=== PATIENT | male | born 1975 | race Caucasian/White ===

== ENCOUNTER 2019-03-19 18:00 | Emergency (ER) | payer BC ==
[2019-03-19] MEDS ORDERED: Adenosine 6 MG/2 ML SDV IVPUSH ONE ×3 (18:01→18:23)
[2019-03-19] MEDS ORDERED: fentaNYL 100 MCG/2 ML SDV ONE ×2 (18:02→18:55)
[2019-03-19] MEDS ORDERED: Adenosine 6 MG/2 ML SDV ONE ×3 (18:02)
[2019-03-19] MEDS ORDERED: Midazolam 1 MG/ML 2 ML SDV ONE ×2 (18:02→18:55)
[2019-03-19] MEDS ORDERED: Sodium Chloride 0.9% 1,000 ML IV ONE ×2 (18:10→19:14)
--- NOTE | 2019-03-19 18:30 | EDM.PDOC ---
ED HPI GENERAL MEDICAL PROBLEM - General Chief Complaint: Chest Pain Stated Complaint: tachycardia Time Seen by Provider: 03/19/19 18:15 Source of Information: Reports: Patient History Limitations: Reports: No Limitations - History of Present Illness INITIAL COMMENTS - FREE TEXT/NARRATIVE: 3Hr hx irregular heartbeat. No chest pain. No Sob/dizziness/diaphoresis. No other accompanying complaints. Admits to brief intermittent episodes of rapid heart rate in past. No formal diagnosis of heart disease. Had an energy drink today and one yesterday. Also drank half a 20ounce Coke. Non-smoker. Denies street drugs. Later disclosed that he drank a case of beer over the weekend. Says that he does not usually drink much during the week, maybe goes through a 6 pack at most. Family history of heart disease but patient cannot be specific as to details. - Related Data Allergies Allergy/AdvReac Type Severity Reaction Status Date / Time No Known Allergies Allergy Verified 03/19/19 18:22 Home Meds: Home Meds . [No Known Home Meds] 03/19/19 [History] Past Medical History - Past Health History Medical/Surgical History: Denies Medical/Surgical History Social & Family History - Tobacco Use Smoking Status *Q: Never Smoker - Caffeine Use Caffeine Use: Reports: Energy Drinks, Soda - Alcohol Use Alcohol Use History: Yes Alcohol Use in Last Twelve Months: Yes Alcohol Use Comment: Drinks up to one 6 pack during week days. Sometimes drinks more on weekends. Admits to drinking " a lot" this past weekend, estimates that he drank a case of beer in total. - Recreational Drug Use Recreational Drug Use: No Drug Use in Last 12 Months: No ED ROS GENERAL - Review of Systems Review Of Systems: ROS reveals no pertinent complaints other than HPI. ED EXAM, GENERAL - Physical Exam Exam: See Below Exam Limited By: No Limitations General Appearance: Alert, WD/WN, No Apparent Distress Eye Exam: Bilateral Eye: EOMI, PERRL Ears: Normal External Exam Nose: No: Nasal Deformity, Nasal Swelling, Nasal Drainage Throat/Mouth: Normal Lips, Normal Voice, No Airway Compromise Head: Atraumatic, Normocephalic Neck: Normal Inspection, Supple, Non-Tender, Full Range of Motion Respiratory/Chest: No Respiratory Distress, No Accessory Muscle Use, Chest Non- Tender, Wheezing (single wheeze noted left lung). No: Crackles, Rales, Rhonchi , Accessory Muscle Use, Retractions Cardiovascular: No Edema, No JVD, Tachycardia GI/Abdominal: Soft, Non-Tender, No Distention (Male) Exam: Deferred Rectal (Males) Exam: Deferred Back Exam: No: CVA Tenderness (L), CVA Tenderness (R), Muscle Spasm, Paraspinal Tenderness, Vertebral Tenderness Extremities: Non-Tender, No Pedal Edema, Normal Capillary Refill Neurological: Alert, Oriented, Normal Cognition, No Motor/Sensory Deficits Psychiatric: Normal Affect, Normal Mood Skin Exam: Warm, Dry, Intact, Normal Color ED GENERAL MEDICAL PROCEDURES - Additional/Other Procedure(s) Other (Free Text) Procedure(s): Synchronized Cardioversion. Premedicated with 3mg Versed and 100mcg Fentanyl. Single shock performed. 100J. Sinus rhythm noted after shock. EKG INTERPRETATION EKG Date: 03/19/19 Time: 18:02 Rhythm: Other (tachycardia) Rate (Beats/Min): 196 [place]: Normal P-Wave: Absent QRS: Wide ST-T: Other (difficult to assess due to tachycardic rhythm) Comparison: NA - No Prior EKG Course - Orders/Labs/Meds Orders: Active Orders 24 hr Category Date Time Status EKG Documentation Completion [RC] ASDIRECTED Care 03/19/19 18:03 Active Chest 1V Frontal [CR] Stat Exams 03/19/19 18:26 Ordered ETOH [ETHANOL BLOOD MEDICAL] [CHEM] Stat Lab 03/19/19 20:56 Ordered Labs: Laboratory Tests 03/19/19 03/19/19 03/19/19 Range/Units 18:18 18:18 18:18 WBC 8.5 (4.0-10.2) K/uL RBC 4.32 L (4.33-5.41) M/uL Hgb 14.0 (13.1-16.8) g/dL Hct 42.6 (39.0-49.0) % MCV 98.6 H (84.0-98.0) fL MCH 32.4 (28.2-33.3) pg MCHC 32.9 (31.7-36.0) g/dL RDW 12.2 (11.2-14.1) % Plt Count 332 (150-350) K/uL Neut % (Auto) 57.8 (45.0-80.0) % Lymph % (Auto) 27.7 (10.0-50.0) % [place] % (Auto) 10.5 (2.0-14.0) % Eos % (Auto) 3.4 (0.0-5.0) % Baso % (Auto) 0.6 (0.0-2.0) % Neut # (Auto) 4.88 (1.40-7.00) K/uL Lymph # (Auto) 2.34 (0.50-3.50) K/uL [place] # (Auto) 0.89 (0.00-1.00) K/uL Eos # (Auto) 0.29 (0.00-0.50) K/uL Baso # (Auto) 0.05 (0.00-0.20) K/uL PT 9.9 (9.5-12.0) SEC INR 0.9 APTT 29.9 (21.0-31.3) SEC D-Dimer, Quantitative < 100 (0-400) ng/mL Sodium (136-145) mmol/L Potassium (3.5-5.1) mmol/L Chloride (98-107) mmol/L Carbon Dioxide (21.0-32.0) mmol/L BUN (7-18) mg/dL Creatinine (0.51-1.17) mg/dL Est Cr Clr Drug Dosing mL/min Estimated GFR (MDRD) mL/min Glucose (74-106) mg/dL Lactic Acid (0.4-2.0) mmol/L Calcium (8.5-10.1) mg/dL Magnesium (1.8-2.4) mg/dL Total Bilirubin (0.2-1.0) mg/dL AST (15-37) U/L ALT (12-78) U/L Alkaline Phosphatase (46-116) IU/L Creatine Kinase (26-308) U/L Creatine Kinase Index (0.0-2.5) % CK-MB (CK-2) (0.00-3.60) ng/mL Troponin I (0.000-0.056) ng/mL NT-Pro-B Natriuret Pep (0-125) pg/mL Total Protein (6.4-8.2) g/dL Albumin (3.4-5.0) g/dL 03/19/19 03/19/19 Range/Units 18:18 18:18 WBC (4.0-10.2) K/uL RBC (4.33-5.41) M/uL Hgb (13.1-16.8) g/dL Hct (39.0-49.0) % MCV (84.0-98.0) fL MCH (28.2-33.3) pg MCHC (31.7-36.0) g/dL RDW (11.2-14.1) % Plt Count (150-350) K/uL Neut % (Auto) (45.0-80.0) % Lymph % (Auto) (10.0-50.0) % [place] % (Auto) (2.0-14.0) % Eos % (Auto) (0.0-5.0) % Baso % (Auto) (0.0-2.0) % Neut # (Auto) (1.40-7.00) K/uL Lymph # (Auto) (0.50-3.50) K/uL [place] # (Auto) (0.00-1.00) K/uL Eos # (Auto) (0.00-0.50) K/uL Baso # (Auto) (0.00-0.20) K/uL PT (9.5-12.0) SEC INR APTT (21.0-31.3) SEC D-Dimer, Quantitative (0-400) ng/mL Sodium 140 (136-145) mmol/L Potassium 3.7 (3.5-5.1) mmol/L Chloride 102 (98-107) mmol/L Carbon Dioxide 25.7 (21.0-32.0) mmol/L BUN 13 (7-18) mg/dL Creatinine 0.95 (0.51-1.17) mg/dL Est Cr Clr Drug Dosing 107.89 mL/min Estimated GFR (MDRD) > 60 mL/min Glucose 161 H (74-106) mg/dL Lactic Acid 1.4 (0.4-2.0) mmol/L Calcium 9.3 (8.5-10.1) mg/dL Magnesium 2.3 (1.8-2.4) mg/dL Total Bilirubin 0.4 (0.2-1.0) mg/dL AST 24 (15-37) U/L ALT 32 (12-78) U/L Alkaline Phosphatase 78 (46-116) IU/L Creatine Kinase 155 (26-308) U/L Creatine Kinase Index 1.2 (0.0-2.5) % CK-MB (CK-2) 1.80 (0.00-3.60) ng/mL Troponin I 0.000 (0.000-0.056) ng/mL NT-Pro-B Natriuret Pep 129 H (0-125) pg/mL Total Protein 8.4 H (6.4-8.2) g/dL Albumin 4.1 (3.4-5.0) g/dL Meds: Medications Discontinued Medications Generic Name Dose Route Start Last Admin Trade Name Freq PRN Reason Stop Dose Admin Adenosine 6 mg 03/19/19 18:01 03/19/19 18:00 Adenocard IVPUSH 03/19/19 18:02 6 mg NOW ONE Administration Adenosine 12 mg 03/19/19 18:01 03/19/19 18:32 Adenocard IVPUSH 03/19/19 18:02 Not Given NOW ONE Adenosine Confirm 03/19/19 18:02 03/19/19 18:26 Adenocard Administered 03/19/19 18:03 Not Given Dose 12 mg .ROUTE .STK-MED ONE Adenosine 12 mg 03/19/19 18:23 03/19/19 18:33 Adenocard IVPUSH 03/19/19 18:24 Not Given NOW ONE Diltiazem HCl 20 mg 03/19/19 18:32 03/19/19 18:37 Diltiazem IVPUSH 03/19/19 18:33 20 mg ONETIME ONE Administration Diltiazem HCl Confirm 03/19/19 18:39 03/19/19 18:58 Diltiazem Administered 03/19/19 18:40 25 mg Dose Administration 25 mg .ROUTE .STK-MED ONE Diltiazem HCl Confirm 03/19/19 18:42 03/19/19 18:46 Diltiazem Administered 03/19/19 18:43 125 mg Dose Administration 125 mg .ROUTE .STK-MED ONE Diltiazem HCl Confirm 03/19/19 18:52 03/19/19 18:58 Diltiazem Administered 03/19/19 18:53 Not Given Dose 25 mg .ROUTE .STK-MED ONE Fentanyl Confirm 03/19/19 18:55 03/19/19 19:16 Sublimaze Administered 03/19/19 18:56 Not Given Dose 100 mcg .ROUTE .STK-MED ONE Heparin Sodium (Porcine) Confirm 03/19/19 19:11 03/19/19 19:24 Heparin Sodium Administered 03/19/19 19:12 4,000 units Dose Administration 5,000 units .ROUTE .STK-MED ONE Midazolam HCl Confirm 03/19/19 18:55 03/19/19 19:16 Versed 1 Mg/Ml Administered 03/19/19 18:56 Not Given Dose 4 mg .ROUTE .STK-MED ONE - Radiology Interpretation Free Text/Narrative:: Chest xray did not show acute focal changes. - Re-Assessments/Exams Free Text/Narrative Re-Assessment/Exam: IV access and labs drawn. Tachycardia with average rate of 190 noted on monitor. Vital signs otherwise stable. Patient given a series of Adenosine injections, 6mg followed by 12mg then an additional 12mg. No effect at all was observed on youth nutritional monitor after any of these interventions. Simultaneous consultation obtained from [facility] as interventions given. Call then placed to [facility] and patient discussed with Cardiology, . Plan then was to try Cardizem if patient remained stable, and then go to Cardioversion if this failed or patient destabilized. 20mg Cardizem given and no change observed. An additional bolus of Cardizem followed and Cardizem drip initiated. Again, no observed change overall in patient's heart rate. Labs overall unremarkable. Blood sugar 161. Troponin negative. Mild increased proBNP. It was decided to perform synchronized cardioversion. Heparin bolus ordered. Patient premedicated with Fentanyl and Versed. Converted to sinus rhythm with single 100J shock. Vital signs remained stable. [facility] contacted with update. accepted the patient for transfer to their facility. Patient remained in sinus rhythm throughout rest of stay. Transferred to [facility] by EMS. Second EKG at 19:15 showed sinus rhythm with non-specific intraventricular block. Unusual Twave morphology in V1-V3. Departure - Departure Time of Disposition: 19:21 Disposition: DC/Tfer to Acute Hospital 02 Condition: Good Clinical Impression: Tachycardia - Discharge Information *PRESCRIPTION DRUG MONITORING PROGRAM REVIEWED*: Not Applicable *COPY OF PRESCRIPTION DRUG MONITORING REPORT IN PATIENT INA: Not Applicable Referrals: PCP,None [Primary Care Provider] - Forms: ED Department Discharge - My Orders Last 24 Hours: My Active Orders 03/19/19 18:03 EKG Documentation Completion [RC] ASDIRECTED 03/19/19 18:26 Chest 1V Frontal [CR] Stat 03/19/19 20:56 ETOH [ETHANOL BLOOD MEDICAL] [CHEM] Stat - Assessment/Plan Last 24 Hours: My Active Orders 03/19/19 18:03 EKG Documentation Completion [RC] ASDIRECTED 03/19/19 18:26 Chest 1V Frontal [CR] Stat 03/19/19 20:56 ETOH [ETHANOL BLOOD MEDICAL] [CHEM] Stat
[2019-03-19] MEDS ORDERED: Diltiazem 25 MG/5 ML SDV IVPUSH ONE (18:32)
[2019-03-19] MEDS ORDERED: Diltiazem 25 MG/5 ML SDV ONE ×2 (18:39→18:52)
[2019-03-19] MEDS ORDERED: Diltiazem 125 MG/25 ML SDV ONE (18:42)
[2019-03-19 18:57] LABS: CHLORIDE,CL 102 mmol/L (98-107); SODIUM,NA 140 mmol/L (136-145)
[2019-03-19] MEDS ORDERED: Heparin Sodium 5,000 Units/ML Vial ONE (19:11)
== END 2019-03-19 19:40 ==
LOC: LL.ED 18:00
DX: R00.0 Tachycardia, unspecified (principal)
CPT/HCPCS: 36415; 71045; 80053; 82550; 82553; 83605; 83735; 83880; 84484; 85025; 85379; 85610; 85730; 92960; 93005; 96361; 96365; 96375; 96376; 99284; 99285-25; G0480; J0153; J1644; J2250; J3010; J3490; J7030

== ENCOUNTER 2019-11-24 16:43 | Emergency (ER) | payer BC ==
[2019-11-24 17:58] LABS: CHLORIDE,CL 104 mmol/L (98-107); SODIUM,NA 137 mmol/L (136-145)
--- NOTE | 2019-11-24 18:02 | EDM.PDOC ---
ED HPI GENERAL MEDICAL PROBLEM - General Chief Complaint: General Stated Complaint: heart racing Time Seen by Provider: 11/24/19 17:20 Source of Information: Reports: Patient History Limitations: Reports: No Limitations - History of Present Illness INITIAL COMMENTS - FREE TEXT/NARRATIVE: Patient comes to ER to be checked out as he felt his heart was faster than usual. Rate was around 100-110 earlier. Admits to some anxiety about situation as last time he had to come in he ended up being cardioverted. 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 Otherwise feels fine. Was outside working in heat yesterday most of day. Today was sitting outside in heat when he noticed this. - Related Data Allergies Allergy/AdvReac Type Severity Reaction Status Date / Time No Known Allergies Allergy Verified 03/19/19 18:22 Home Meds: Home Meds Metoprolol Succinate [Toprol XL] 25 mg PO DAILY 11/24/19 [History] Past Medical History - Past Health History Medical/Surgical History: Denies Medical/Surgical History Cardiovascular History: Reports: Other (See Below) (Channing Schumacher) Social & Family History - Caffeine Use Caffeine Use: Reports: Energy Drinks, Soda ED ROS GENERAL - Review of Systems Review Of Systems: See Below Constitutional: Reports: No Symptoms HEENT: Reports: No Symptoms Respiratory: Reports: No Symptoms. Denies: Shortness of Breath Cardiovascular: Reports: Palpitations (felt "fluttery" in chest for awhile. Now improved. ). Denies: Chest Pain, Dyspnea on Exertion, Lightheadedness, Syncope GI/Abdominal: Reports: No Symptoms : Reports: No Symptoms Musculoskeletal: Reports: No Symptoms Skin: Reports: No Symptoms Neurological: Reports: No Symptoms Psychiatric: Reports: No Symptoms ED EXAM, GENERAL - Physical Exam Exam: See Below Exam Limited By: No Limitations General Appearance: Alert, WD/WN, No Apparent Distress Eye Exam: Bilateral Eye: EOMI, PERRL Ears: Normal External Exam, Hearing Grossly Normal Nose: No: Nasal Deformity, Nasal Swelling, Nasal Drainage Throat/Mouth: Normal Lips, Normal Voice, No Airway Compromise Head: Atraumatic, Normocephalic Neck: Normal Inspection, Supple, Non-Tender, Full Range of Motion Respiratory/Chest: No Respiratory Distress, Lungs Clear, Normal Breath Sounds, No Accessory Muscle Use Cardiovascular: Normal Peripheral Pulses, Regular Rate, Rhythm, No Edema, No Murmur GI/Abdominal: Soft, Non-Tender, No Distention Back Exam: Normal Inspection Extremities: Normal Inspection, Normal Range of Motion, Normal Capillary Refill Neurological: Alert, Oriented, CN II-XII Intact, Normal Cognition, Normal Gait, No Motor/Sensory Deficits Psychiatric: Normal Affect, Normal Mood Skin Exam: Warm, Dry, Intact, Normal Color EKG INTERPRETATION EKG Date: 11/24/19 Time: 17:14 Rhythm: NSR Rate (Beats/Min): 84 [place]: Normal P-Wave: Present QRS: Other (RSR' pattern V1) ST-T: Normal QT: Normal Comparison: Change From Previous EKG (Previous EKG/patient tachycardic) Course - Vital Signs Last Recorded V/S: Last Vital Signs Temp 37.1 C 11/24/19 16:43 Pulse 81 11/24/19 17:50 Resp 19 11/24/19 17:50 BP 124/76 11/24/19 17:50 Pulse Ox 97 11/24/19 17:50 - Orders/Labs/Meds Labs: Laboratory Tests 11/24/19 11/24/19 Range/Units 17:26 17:26 WBC 6.5 (4.0-10.2) K/uL RBC 3.99 L (4.33-5.41) M/uL Hgb 13.0 L (13.1-16.8) g/dL Hct 40.1 (39.0-49.0) % MCV 100.5 H (84.0-98.0) fL MCH 32.6 (28.2-33.3) pg MCHC 32.4 (31.7-36.0) g/dL RDW 12.2 (11.2-14.1) % Plt Count 321 (150-350) K/uL Neut % (Auto) 67.9 (45.0-80.0) % Lymph % (Auto) 17.4 (10.0-50.0) % [place] % (Auto) 9.6 (2.0-14.0) % Eos % (Auto) 4.5 (0.0-5.0) % Baso % (Auto) 0.6 (0.0-2.0) % Neut # (Auto) 4.40 (1.40-7.00) K/uL Lymph # (Auto) 1.13 (0.50-3.50) K/uL [place] # (Auto) 0.62 (0.00-1.00) K/uL Eos # (Auto) 0.29 (0.00-0.50) K/uL Baso # (Auto) 0.04 (0.00-0.20) K/uL Sodium 137 (136-145) mmol/L Potassium 4.0 (3.5-5.1) mmol/L Chloride 104 (98-107) mmol/L Carbon Dioxide 26.8 (21.0-32.0) mmol/L BUN 12 (7-18) mg/dL Creatinine 0.85 (0.51-1.17) mg/dL Est Cr Clr Drug Dosing 119.35 mL/min Estimated GFR (MDRD) > 60 mL/min Glucose 136 H (74-106) mg/dL Calcium 8.7 (8.5-10.1) mg/dL Magnesium 2.1 (1.8-2.4) mg/dL Total Bilirubin 0.3 (0.2-1.0) mg/dL AST 27 (15-37) U/L ALT 29 (12-78) U/L Alkaline Phosphatase 95 (46-116) IU/L Total Protein 7.7 (6.4-8.2) g/dL Albumin 3.6 (3.4-5.0) g/dL - Re-Assessments/Exams Free Text/Narrative Re-Assessment/Exam: Unremarkable exam. Patient reported feeling well. EKG showed normal rate/vital signs stable. CBC/Chem/Mg performed and overall unremarkable. No further intervention indicated at this time. May have been heat related/mild dehydration. Recommended to patient to observe for further changes, rest in AC environment today and tomorrow/stay hydrated. Follow up as needed if problems return. Patient agreeable with plan. Departure - Departure Time of Disposition: 18:00 Disposition: Home, Self-Care 01 Condition: Good Clinical Impression: Heat exposure Qualifiers: Encounter type: initial encounter Qualified Code(s): T67.9XXA - Effect of heat and light, unspecified, initial encounter - Discharge Information *PRESCRIPTION DRUG MONITORING PROGRAM REVIEWED*: Not Applicable *COPY OF PRESCRIPTION DRUG MONITORING REPORT IN PATIENT INA: Not Applicable Referrals: Sunny Muir PA-C [Primary Care Provider] - Forms: ED Department Discharge Additional Instructions: Take it easy today and tomorrow. Stay hydrated! Follow up as needed if you have additional problems. Sepsis Event Note (ED) - Evaluation Sepsis Screening Result: No Definite Risk - Focused Exam Vital Signs: Vital Signs Temp Pulse Resp BP Pulse Ox 11/24/19 17:50 81 19 124/76 97 11/24/19 17:35 80 18 121/75 97 11/24/19 17:20 84 20 127/74 96 11/24/19 17:05 83 20 141/78 H 98 11/24/19 16:50 80 16 129/76 99 11/24/19 16:45 81 16 142/79 H 100 11/24/19 16:43 37.1 C 79 18 142/79 H 100
== END 2019-11-24 18:15 | disposition home or self-care (01) ==
LOC: LL.ED 16:43
DX: T67.9XXA Effect of heat and light, unspecified, initial encounter (principal); R00.0 Tachycardia, unspecified; Z79.899 Other long term (current) drug therapy
CPT/HCPCS: 36415; 80053; 83735; 85025; 99285-25

== ENCOUNTER 2020-06-28 08:42 | Emergency (ER) | payer BC ==
[2020-06-28] MEDS ORDERED: Sodium Chloride 0.9% 10 ML Syringe FLUSH PRN (09:04)
[2020-06-28 09:48] LABS: CHLORIDE,CL 103 mmol/L (98-107); SODIUM,NA 137 mmol/L (136-145)
--- NOTE | 2020-06-28 09:55 | EDM.PDOC ---
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 Has not had ablation yet No chest pain Some SOB Did do Valsalva today and converted prior to arrival Onset: Today, Sudden Location: Reports: Chest - Related Data Allergies Allergy/AdvReac Type Severity Reaction Status Date / Time No Known Allergies Allergy Verified 06/28/20 08:52 Home Meds: Home Meds Metoprolol Succinate [Toprol XL] 25 mg PO DAILY 11/24/19 [History] Multivitamin 1 tab PO DAILY 06/28/20 [History] Past Medical History - Past Health History Medical/Surgical History: Denies Medical/Surgical History Cardiovascular History: Reports: Other (See Below) Other Cardiovascular History: Hx of WPW Dx. - Infectious Disease History Infectious Disease History: Reports: Chicken Pox Social & Family History - Tobacco Use Tobacco Use Status *Q: Never Tobacco User Second Hand Smoke Exposure: No - Caffeine Use Caffeine Use: Reports: None - Recreational Drug Use Recreational Drug Use: No ED ROS GENERAL - Review of Systems Review Of Systems: See Below HEENT: Reports: No Symptoms Respiratory: Reports: No Symptoms Cardiovascular: Reports: Palpitations GI/Abdominal: Reports: No Symptoms Musculoskeletal: Reports: No Symptoms ED EXAM, GENERAL - Physical Exam Exam: See Below Exam Limited By: No Limitations General Appearance: Alert, WD/WN, No Apparent Distress Neck: Supple Respiratory/Chest: Lungs Clear Cardiovascular: Regular Rate, Rhythm GI/Abdominal: Soft, Non-Tender Extremities: Normal Inspection Neurological: Alert, Oriented Course - Vital Signs Last Recorded V/S: Last Vital Signs Temp 98.2 F 06/28/20 09:00 Pulse 87 06/28/20 09:12 Resp 18 06/28/20 09:12 BP 131/87 06/28/20 09:12 Pulse Ox 99 06/28/20 09:12 - Orders/Labs/Meds Orders: Active Orders 24 hr Category Date Time Status EKG Documentation Completion [RC] ASDIRECTED Care 06/28/20 08:52 Active Chest 2V [CR] Stat Exams 06/28/20 08:50 Taken Sodium Chloride 0.9% [Saline Flush] Med 06/28/20 09:04 Active 10 ml FLUSH ASDIRECTED PRN Saline Lock Insert [OM.PC] Routine Oth 06/28/20 09:04 Ordered EKG 12 Lead [EK] Stat Ther 06/28/20 08:50 Ordered Medication Orders Sodium Chloride (Saline Flush) 10 ml FLUSH ASDIRECTED PRN PRN Reason: Keep Vein Open Labs: Laboratory Tests 06/28/20 06/28/20 06/28/20 Range/Units 09:00 09:00 09:00 WBC 6.4 (4.0-10.2) K/uL RBC 4.36 (4.33-5.41) M/uL Hgb 14.2 (13.1-16.8) g/dL Hct 43.8 (39.0-49.0) % MCV 100.5 H (84.0-98.0) fL MCH 32.6 (28.2-33.3) pg MCHC 32.4 (31.7-36.0) g/dL RDW 11.7 (11.2-14.1) % Plt Count 315 (150-350) K/uL Neut % (Auto) 55.4 (45.0-80.0) % Lymph % (Auto) 28.1 (10.0-50.0) % [place] % (Auto) 10.8 (2.0-14.0) % Eos % (Auto) 4.8 (0.0-5.0) % Baso % (Auto) 0.9 (0.0-2.0) % Neut # (Auto) 3.54 (1.40-7.00) K/uL Lymph # (Auto) 1.80 (0.50-3.50) K/uL [place] # (Auto) 0.69 (0.00-1.00) K/uL Eos # (Auto) 0.31 (0.00-0.50) K/uL Baso # (Auto) 0.06 (0.00-0.20) K/uL Sodium 137 (136-145) mmol/L Potassium 3.8 (3.5-5.1) mmol/L Chloride 103 (98-107) mmol/L Carbon Dioxide 22.9 (21.0-32.0) mmol/L BUN 13 (7-18) mg/dL Creatinine 1.18 H (0.51-1.17) mg/dL Est Cr Clr Drug Dosing 85.08 mL/min Estimated GFR (MDRD) > 60 mL/min Glucose 112 H (74-106) mg/dL Lactic Acid 1.1 (0.4-2.0) mmol/L Calcium 8.9 (8.5-10.1) mg/dL Total Bilirubin 0.3 (0.2-1.0) mg/dL AST 23 (15-37) U/L ALT 41 (12-78) U/L Alkaline Phosphatase 91 (46-116) IU/L Creatine Kinase 91 (26-308) U/L Creatine Kinase Index 0.9 (0.0-2.5) % CK-MB (CK-2) 0.80 (0.00-3.60) ng/mL Troponin I 0.000 (0.000-0.056) ng/mL Total Protein 8.6 H (6.4-8.2) g/dL Albumin 3.8 (3.4-5.0) g/dL Meds: Medications Generic Name Dose Route Start Last Admin Trade Name Freq PRN Reason Stop Dose Admin Sodium Chloride 10 ml 06/28/20 09:04 Saline Flush FLUSH ASDIRECTED PRN Keep Vein Open - Re-Assessments/Exams Free Text/Narrative Re-Assessment/Exam: 06/28/20 09:52 See lab Pt stable in ER with NSR Rate 90's No symptoms Pt will follow up with cardiology Departure - Departure Time of Disposition: 10:00 Disposition: Home, Self-Care 01 Clinical Impression: WPW (Oqezd-Crvczqozd-Vfnjp syndrome) Instructions: Nwavn-Jxhknyltj-Yywbs Syndrome Referrals: Sunny Muir PA-C [Primary Care Provider] - Additional Instructions: Follow up in cardiology clinic To ER if recurs Sepsis Event Note (ED) - Evaluation Sepsis Screening Result: No Definite Risk - Focused Exam Vital Signs: Vital Signs Temp Pulse Resp BP Pulse Ox 06/28/20 09:12 87 18 131/87 99 06/28/20 09:00 98.2 F 89 16 137/92 H 98 06/28/20 08:45 98.3 F 93 15 133/87 99 - My Orders Last 24 Hours: My Active Orders 06/28/20 08:50 Chest 2V [CR] Stat EKG 12 Lead [EK] Stat 06/28/20 08:52 EKG Documentation Completion [RC] ASDIRECTED 06/28/20 09:04 Sodium Chloride 0.9% [Saline Flush] 10 ml FLUSH ASDIRECTED PRN Saline Lock Insert [OM.PC] Routine - Assessment/Plan Last 24 Hours: My Active Orders 06/28/20 08:50 Chest 2V [CR] Stat EKG 12 Lead [EK] Stat 06/28/20 08:52 EKG Documentation Completion [RC] ASDIRECTED 06/28/20 09:04 Sodium Chloride 0.9% [Saline Flush] 10 ml FLUSH ASDIRECTED PRN Saline Lock Insert [OM.PC] Routine
== END 2020-06-28 10:15 | disposition home or self-care (01) ==
LOC: LL.ED 08:42
DX: I45.6 Pre-excitation syndrome (principal); Z79.899 Other long term (current) drug therapy
CPT/HCPCS: 36415; 71046; 80053; 82550; 82553; 83605; 84484; 85025; 93005; 99283; 99285-25

== ENCOUNTER 2020-11-30 13:50 | Emergency (ER) | payer BC ==
[2020-11-30] MEDS ORDERED: Sodium Chloride 0.9% 10 ML Syringe FLUSH PRN (14:17)
[2020-11-30] MEDS ORDERED: Lactated Ringers 1,000 ML IV SCH (14:30)
--- NOTE | 2020-11-30 14:56 | EDM.PDOC ---
ED HPI GENERAL MEDICAL PROBLEM - General Chief Complaint: Chest Pain Stated Complaint: anxious, fluttering in chest Time Seen by Provider: 11/30/20 14:05 Source of Information: Reports: Patient History Limitations: Reports: No Limitations - History of Present Illness INITIAL COMMENTS - FREE TEXT/NARRATIVE: Pt. presents to ER with complaints of feeling anxious and experiencing i ntermittent palpitations for the past 2 days. 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 He had several episodes of SVT requiring cardioversion. Pt. states that he has had not symptoms since the ablation in August. Pt. states that he has not followed up since the surgery. Pt. denies any chest pain or shortness of breath. No nausea or vomiting. Denies any fever or chills. He was not experiencing any symptoms since arriving to ER today. Pt. states that he has been outside working in the heat recently which may be contributing to the symptoms. He denies any street drug or prescription drug use. Onset Date: 11/29/20 - Related Data Allergies Allergy/AdvReac Type Severity Reaction Status Date / Time No Known Allergies Allergy Verified 11/30/20 13:51 Home Meds: Home Meds Multivitamin 1 tab PO DAILY 06/28/20 [History] Aspirin [Halfprin] 81 mg PO DAILY 11/30/20 [History] Past Medical History - Past Health History Medical/Surgical History: Denies Medical/Surgical History Cardiovascular History: Reports: Other (See Below) Other Cardiovascular History: Hx of WPW Dx. - Infectious Disease History Infectious Disease History: Reports: Chicken Pox Social & Family History - Tobacco Use Tobacco Use Status *Q: Never Tobacco User Second Hand Smoke Exposure: No - Caffeine Use Caffeine Use: Reports: Soda Other Caffeine Use: maybe every other day - Alcohol Use Days Per Week of Alcohol Use: 3 Number of Drinks Per Day: 1 Total Drinks Per Week: 3 - Recreational Drug Use Recreational Drug Use: No ED ROS GENERAL - Review of Systems Review Of Systems: Comprehensive ROS is negative, except as noted in HPI. ED EXAM, GENERAL - Physical Exam Exam: See Below Exam Limited By: No Limitations General Appearance: Alert, WD/WN, No Apparent Distress Nose: Normal Inspection, Normal Mucosa, No Blood Throat/Mouth: Normal Inspection, Normal Lips, Normal Oropharynx, No Airway Compromise Head: Atraumatic, Normocephalic Neck: Normal Inspection, Supple, Non-Tender, Full Range of Motion Respiratory/Chest: No Respiratory Distress, Lungs Clear, Normal Breath Sounds, No Accessory Muscle Use, Chest Non-Tender Cardiovascular: Normal Peripheral Pulses, Regular Rate, Rhythm, No Edema, No JVD Peripheral Pulses: 4+: Radial (L) GI/Abdominal: Soft, Non-Tender, No Distention, No Mass (Male) Exam: Deferred Rectal (Males) Exam: Deferred Extremities: Normal Inspection, Normal Range of Motion, No Pedal Edema, Normal Capillary Refill Neurological: Alert, Oriented, CN II-XII Intact, Normal Cognition, Normal Gait, Normal Reflexes, No Motor/Sensory Deficits Psychiatric: Normal Affect, Normal Mood Skin Exam: Warm, Dry, Intact, Normal Color, No Rash Lymphatic: No Adenopathy #1 Interpretation Rhythm: NSR [place]: Normal P-Wave: Present QRS: Normal ST-T: Normal QT: Normal Course - Vital Signs Last Recorded V/S: Last Vital Signs Temp 36.6 C 11/30/20 13:55 Pulse 102 H 11/30/20 13:55 Resp 18 11/30/20 13:55 BP 152/93 H 11/30/20 13:55 Pulse Ox 100 11/30/20 13:55 - Orders/Labs/Meds Orders: Active Orders 24 hr Category Date Time Status EKG Documentation Completion [RC] ASDIRECTED Care 11/30/20 14:18 Active Peripheral IV Care [RC] . DIRECTED Care 11/30/20 14:18 Active Lactated Ringers [Ringers, Lactated] 1,000 ml Med 11/30/20 14:30 Active IV ASDIRECTED Sodium Chloride 0.9% [Saline Flush] Med 11/30/20 14:17 Active 10 ml FLUSH ASDIRECTED PRN Peripheral IV Insertion Adult [OM.PC] Routine Oth 11/30/20 14:18 Ordered EKG 12 Lead [EK] Stat Ther 11/30/20 14:17 Ordered Medication Orders Lactated Ringer's (Ringers, Lactated) 1,000 mls @ 500 mls/hr IV ASDIRECTED NELY Last Admin: 11/30/20 14:37 Dose: 500 mls/hr Documented by: KRISTOPHER Sodium Chloride (Sodium Chloride 0.9% 10 Ml Syringe) 10 ml FLUSH ASDIRECTED PRN PRN Reason: Keep Vein Open Labs: Laboratory Tests 11/30/20 11/30/20 Range/Units 14:30 14:30 WBC 5.8 (4.0-10.2) K/uL RBC 4.71 (4.33-5.41) M/uL Hgb 15.4 (13.1-16.8) g/dL Hct 46.1 (39.0-49.0) % MCV 97.9 (84.0-98.0) fL MCH 32.7 (28.2-33.3) pg MCHC 33.4 (31.7-36.0) g/dL RDW 11.8 (11.2-14.1) % Plt Count 365 H (150-350) K/uL Neut % (Auto) 63.9 (45.0-80.0) % Lymph % (Auto) 18.6 (10.0-50.0) % [place] % (Auto) 12.6 (2.0-14.0) % Eos % (Auto) 4.0 (0.0-5.0) % Baso % (Auto) 0.9 (0.0-2.0) % Neut # (Auto) 3.71 (1.40-7.00) K/uL Lymph # (Auto) 1.08 (0.50-3.50) K/uL [place] # (Auto) 0.73 (0.00-1.00) K/uL Eos # (Auto) 0.23 (0.00-0.50) K/uL Baso # (Auto) 0.05 (0.00-0.20) K/uL Sodium 140 (136-145) mmol/L Potassium 4.2 (3.5-5.1) mmol/L Chloride 103 (98-107) mmol/L Carbon Dioxide 26.1 (21.0-32.0) mmol/L BUN 12 (7-18) mg/dL Creatinine 0.83 (0.51-1.17) mg/dL Est Cr Clr Drug Dosing 120.96 mL/min Estimated GFR (MDRD) > 60 mL/min Glucose 131 H (70-99) mg/dL Calcium 9.1 (8.5-10.1) mg/dL Phosphorus 2.6 (2.6-4.7) mg/dL Magnesium 2.4 (1.8-2.4) mg/dL Total Bilirubin 0.5 (0.2-1.0) mg/dL AST 31 (15-37) U/L ALT 49 (12-78) U/L Alkaline Phosphatase 88 (46-116) IU/L Troponin I 0.000 (0.000-0.056) ng/mL NT-Pro-B Natriuret Pep 60 (0-125) pg/mL Total Protein 8.7 H (6.4-8.2) g/dL Albumin 3.8 (3.4-5.0) g/dL TSH, Ultra Sensitive 2.040 (0.358-3.740) mIU/mL Meds: Medications Generic Name Dose Route Start Last Admin Trade Name Freq PRN Reason Stop Dose Admin Lactated Ringer's 1,000 mls @ 500 mls/hr 11/30/20 14:30 11/30/20 14:37 Ringers, Lactated IV 500 mls/hr ASDIRECTED NELY Administration Sodium Chloride 10 ml 11/30/20 14:17 Sodium Chloride 0.9% 10 Ml Syringe FLUSH ASDIRECTED PRN Keep Vein Open Departure - Departure Time of Disposition: 16:00 Disposition: Home, Self-Care 01 Clinical Impression: Palpitations - Discharge Information Instructions: Palpitations, [id number] Referrals: Sunny Muir PA-C [Primary Care Provider] - Forms: ED Department Discharge Additional Instructions: Home to rest. Minimize physical activity today and tomorrow. Follow-up in [facility] and with Dr. Carpenter in the near future. Return to ER if you have recurrent heart racing, lightheadedness, chest pain, or shortness of breath. Sepsis Event Note (ED) - Evaluation Sepsis Screening Result: No Definite Risk - Focused Exam Vital Signs: Vital Signs Temp Pulse Resp BP Pulse Ox 11/30/20 13:55 36.6 C 102 H 18 152/93 H 100 - Problem List Review Problem List Initiated/Reviewed/Updated: Yes - My Orders Last 24 Hours: My Active Orders 11/30/20 14:17 Sodium Chloride 0.9% [Saline Flush] 10 ml FLUSH ASDIRECTED PRN EKG 12 Lead [EK] Stat 11/30/20 14:18 EKG Documentation Completion [RC] ASDIRECTED Peripheral IV Care [RC] . DIRECTED Peripheral IV Insertion Adult [OM.PC] Routine 11/30/20 14:30 Lactated Ringers [Ringers, Lactated] 1,000 ml IV ASDIRECTED - Assessment/Plan Last 24 Hours: My Active Orders 11/30/20 14:17 Sodium Chloride 0.9% [Saline Flush] 10 ml FLUSH ASDIRECTED PRN EKG 12 Lead [EK] Stat 11/30/20 14:18 EKG Documentation Completion [RC] ASDIRECTED Peripheral IV Care [RC] . DIRECTED Peripheral IV Insertion Adult [OM.PC] Routine 11/30/20 14:30 Lactated Ringers [Ringers, Lactated] 1,000 ml IV ASDIRECTED Plan: Home to rest. Minimize physical activity today and tomorrow. Follow-up in [facility] and with Dr. Carpenter in the near future. Return to ER if you have recurrent heart racing, lightheadedness, chest pain, or shortness of breath.
[2020-11-30 15:04] LABS: CHLORIDE,CL 103 mmol/L (98-107); SODIUM,NA 140 mmol/L (136-145)
== END 2020-11-30 16:18 | disposition home or self-care (01) ==
LOC: LL.ED 13:50
DX: R00.2 Palpitations (principal); Z79.82 Long term (current) use of aspirin
CPT/HCPCS: 36415; 80053; 83735; 83880; 84100; 84443; 84484; 85025; 93005; 93010; 99284; 99285-25; J7120